=== PATIENT | male | born 1975 | race Caucasian/White ===

== ENCOUNTER 2021-07-06 18:32 | Emergency (ER) | payer OTHER, SELFPAY ==
--- NOTE | ~2021-07-06 | XR_ITS ---
EXAMINATION: XR KNEE, RIGHT CLINICAL INFORMATION: Pain COMPARISON: None TECHNIQUE: Four views of the right knee. FINDINGS: There is no acute fracture, subluxation or suspicious focal lesion. No significant joint fluid. There is mild stranding in the infrapatellar fat and in the medial soft tissues. Coarse calcification adjacent to the medial femoral condyle likely reflects old injury. XR/XR knee RT 3V IMPRESSION: No acute fracture or subluxation. I suspect an old injury. Superimposed acute soft tissue injury may be present.
[2021-07-06 19:15] VITALS: BP 99/73; PULSE 52; RESP 20; TEMP 36.5; O2SAT 98; BMI 30.7
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
== END 2021-07-06 23:06 | disposition home or self-care (01) ==
PROVIDERS: Emergency Provider Internal Medicine
DX: M25.561 Pain in right knee (principal); Z91.81 History of falling
CPT/HCPCS: 73562; 99283

== ENCOUNTER → 2021-07-09 09:59 | Outpatient (BNVA) | payer OTHER, SELFPAY | PROVIDERS: Visit Provider Internal Medicine | DX: S80.02XA Contusion of left knee, initial encounter (principal); S80.01XA Contusion of right knee, initial encounter; W01.0XXA Fall on same level from slipping, tripping and stumbling without subsequent striking against object, initial encounter | CPT/HCPCS: 99202 ==